=== PATIENT | female | born 1960 | race Caucasian/White ===

== ENCOUNTER → 2023-03-15 16:43 | Outpatient (CLI) | payer MEDICARE, SELFPAY ==
[2023-03-15 17:48] LABS: Hemoglobin A1C 6.3 % (4.0-6.0)
[2023-03-15 18:24] LABS: Chloride 107 mmol/L (98-107); Potassium 4.7 mmoL/L (3.5-5.1); Sodium 141 mmol/L (136-145)
[2023-03-15 18:26] LABS: Blood Urea Nitrogen 20 mg/dl (7-17); Estimated Glomerular Filt Rate 72 ml/min (>60); GFR (African American) 88 ML/MIN (>60)
[2023-03-15 18:27] LABS: Alanine Aminotransferase 18 U/L (12-78); Albumin Level 4.2 g/dl (3.5-5.0); Albumin/Globulin Ratio 1.4 (1.1-1.8); Alkaline Phosphatase 75 U/L (38-126); Anion Gap 13.7 mEq/L (5-15); Aspartate Amino Transferase 23 U/L (14-36); Bilirubin,Total 0.4 mg/dl (0.2-1.3); Calcium 10.1 mg/dl (8.4-10.2); Carbon Dioxide 25 mmol/L (22.0-30.0); Chol/HDL Ratio 5.2 (1-3.5); Cholesterol 275 mg/dl (140-200); Globulin 3.1 g/dL (1.3-3.2); Glucose 116 mg/dl (74-100); HDL Cholesterol 53 mg/dl (40-60); Total Protein,Serum 7.3 g/dl (6.3-8.2); Triglycerides 224 mg/dl (30-150); VLDL Cholesterol 45 mg/dL (0-40)
[2023-03-15 18:38] LABS: Direct LDL Cholesterol 150.12 mg/dL (100-129)
[2023-03-15 18:43] LABS: 25-OH Vitamin D, Total 33.8 ng/mL (30-100)
[2023-03-15 18:44] LABS: Free T4 (Free Thyroxine) 1.23 ng/dl (0.78-2.19)
[2023-03-15 18:57] LABS: Thyroid Stimulating Hormone 2.54 uIU/mL (0.465-4.68)
[2023-03-15 21:06] LABS: Vitamin B12 > 1000 pg/mL (239-931)
== END ==
PROVIDERS: Nurse Practitioner; PCP Family Medicine; Visit Provider Family Medicine
DX: E11.9 Type 2 diabetes mellitus without complications (principal); E55.9 Vitamin D deficiency, unspecified; E78.5 Hyperlipidemia, unspecified; E03.9 Hypothyroidism, unspecified; R20.2 Paresthesia of skin
CPT/HCPCS: 80053; 80061; 82306; 82607; 83036; 84439; 84443